=== PATIENT | female | born 1965 | race Caucasian/White ===

== ENCOUNTER 2016-08-08 18:42 | Emergency (ER) | payer MEDICAID ==
[~2016-08-08] VITALS: Ht 175.3 cm; Wt 77.3 kg
[~2016-08-08 18:42] MED LIST: ALBU6.7H IH; CYAN1TAB39 PO; FLUO20CA8 PO; LEVO150T5 PO; METF500T4 PO; OLAN15TA9 PO; RANI150C PO; SALM50DI IH; SOLI5TAB PO
[2016-08-08] MEDS ORDERED: DIPHENHYDRAMINE 50 MG/ML, 1ML ONE (19:21)
[2016-08-08] MEDS ORDERED: PROCHLORPERAZINE 5 MG/ML, 2ML ONE (19:22)
[2016-08-08] MEDS ORDERED: DIPHENHYDRAMINE 50 MG/ML, 1ML IVPush ONE (19:30)
[2016-08-08] MEDS ORDERED: SODIUM CHLORIDE 0.9% 1,000ML IVBOLUS ONE (19:30)
[2016-08-08] MEDS ORDERED: PROCHLORPERAZINE 5 MG/ML, 2ML IVPush ONE (19:30)
[2016-08-08 20:42] VITALS: BP 112/56
== END 2016-08-08 20:44 | disposition home or self-care (01) ==
LOC: ED 20:36
DX: G43.019 Migraine without aura, intractable, without status migrainosus (principal); F17.210 Nicotine dependence, cigarettes, uncomplicated; E78.5 Hyperlipidemia, unspecified; J45.909 Unspecified asthma, uncomplicated
CPT/HCPCS: 70450; 96361; 96374; 96375; 99284; J0780; J1200; J7030

== ENCOUNTER 2016-10-01 19:43 | Emergency (ER) | payer MEDICAID ==
[~2016-10-01] VITALS: Ht 177.8 cm; Wt 74.9 kg
[2016-10-01 20:49] LABS: BLOOD UREA NITROGEN 6 mg/dL (7-18)
[2016-10-01 22:07] LABS: IS PT STATUS REG ER OR PRE ER? YES
[2016-10-01 22:43] VITALS: BP 125/71
== END 2016-10-01 22:45 | disposition home or self-care (01) ==
LOC: ED 22:00
DX: R42 Dizziness and giddiness (principal); R53.1 Weakness; E78.5 Hyperlipidemia, unspecified; F17.210 Nicotine dependence, cigarettes, uncomplicated; E03.9 Hypothyroidism, unspecified; Z98.51 Tubal ligation status
CPT/HCPCS: 36415; 71010; 80048; 82040; 83735; 84436; 84443; 84484; 85025; 93005; 99285

== ENCOUNTER 2017-08-10 10:20 | Emergency (ER) | payer MEDICAID ==
[~2017-08-10] VITALS: Ht 175.3 cm; Wt 74.4 kg
[~2017-08-10 10:20] MED LIST changes: -SOLI5TAB PO; +SOLI5TAB2 PO
[2017-08-10 10:21] VITALS: BP 111/68
[2017-08-10] MEDS ORDERED: PROPARACAINE OPHTH 0.5%, 15ML ONE (11:06)
[2017-08-10] MEDS ORDERED: FLUORESCEIN OPHTHALMIC 1 MG STRIP EACHEYE ONE (11:30)
[2017-08-10] MEDS ORDERED: PROPARACAINE OPHTH 0.5%, 15ML EACHEYE ONE (11:30)
== END 2017-08-10 11:44 | disposition home or self-care (01) ==
LOC: ED 11:34
DX: H00.022 Hordeolum internum right lower eyelid (principal); E78.5 Hyperlipidemia, unspecified; F17.210 Nicotine dependence, cigarettes, uncomplicated; E03.9 Hypothyroidism, unspecified; J45.909 Unspecified asthma, uncomplicated; Z90.49 Acquired absence of other specified parts of digestive tract
CPT/HCPCS: 99283

== ENCOUNTER 2018-04-04 10:47 | Emergency (ER) | payer MEDICAID ==
[~2018-04-04] VITALS: Ht 175.3 cm; Wt 65.0 kg
[~2018-04-04 10:47] MED LIST changes: +METF500T17 PO; -METF500T4 PO
--- NOTE | 2018-04-04 11:30 | NUR ---
PT AMBULATORY TO E FROM [facility] AT THIS TIME WITH STEADY GAIT.NAD NOTED. RESP REGULAR AND UNLABORED. CALL LIGHT IN REACH. FALL PRECAUTIONS IN PLACE. SIDE RAILS UPX2. PATO LUIS AT BEDSIDE FOR EVALUATION.
[2018-04-04] MEDS ORDERED: KETOROLAC 30 MG/1 ML IM ONE (12:00)
[2018-04-04] MEDS ORDERED: KETOROLAC 30 MG/1 ML ONE (12:03)
[2018-04-04 12:07] LABS: RAPID INFLUENZA A Negative (Negative); RAPID INFLUENZA B Negative (Negative)
--- NOTE | 2018-04-04 12:10 | NUR ---
PT MEDICATED NOTED PER ORDER FOR BODY ACHES
--- NOTE | 2018-04-04 12:32 | NUR ---
PATO LUIS AT BEDSIDE FOR RECHECK
[2018-04-04 12:55] VITALS: BP 91/58
== END 2018-04-04 13:04 | disposition home or self-care (01) ==
LOC: ED 11:11
DX: R50.9 Fever, unspecified (principal); B34.9 Viral infection, unspecified; M79.10 Myalgia, unspecified site; J45.909 Unspecified asthma, uncomplicated; E03.9 Hypothyroidism, unspecified; E78.5 Hyperlipidemia, unspecified; F31.9 Bipolar disorder, unspecified; F17.210 Nicotine dependence, cigarettes, uncomplicated
CPT/HCPCS: 87400; 96372; 99283; J1885

== ENCOUNTER 2018-05-23 14:00 | Emergency (ER) | payer MEDICAID ==
[~2018-05-23] VITALS: Ht 175.3 cm; Wt 62.1 kg
--- NOTE | 2018-05-23 14:37 | NUR ---
Pt to room from lobby.
[2018-05-23 14:43] LABS: MEAN CORPUSCULAR HEMOGLOBIN 32.8 pg (27.0-34.8); MEAN CORPUSCULAR HGB CONC 33.6 g/dL (32.4-35.8); MEAN CORPUSCULAR VOLUME 97.4 fL (80-100); MEAN PLATELET VOLUME 10.1 fL (7.4-10.4); PLATELET COUNT 281 x10^3/uL (130-400); RED BLOOD COUNT 4.72 x10^6/uL (3.82-5.3); RED CELL DISTRIBUTION WIDTH 14.4 % (9.6-15.2)
[2018-05-23 14:54] LABS: ALBUMIN 3.9 g/dL (3.4-5.0); ANION GAP 4 mmol/L (5-15); CALCIUM 9.1 mg/dL (8.5-10.1); CHLORIDE 105 mmol/L (98-107); CREATININE 0.77 mg/dL (0.55-1.02)
[2018-05-23 15:04] LABS: ALANINE AMINOTRANSFERASE 21 U/L (12-78); ALKALINE PHOSPHATASE 50 U/L (45-117); BILIRUBIN,TOTAL 0.6 mg/dL (0.2-1.0); FREE T4 (FREE THYROXINE) 1.63 ng/dL (0.76-1.46); TOTAL PROTEIN 7.5 g/dL (6.4-8.2)
--- NOTE | 2018-05-23 15:20 | NUR ---
pT IN AGREEMENT WITH PLAN FOR D/C HOME
[2018-05-23] MEDS ORDERED: LAMO200T3 PO (15:22)
[2018-05-23] MEDS ORDERED: LORA1TAB PO (15:22)
[2018-05-23 15:25] VITALS: BP 112/60
[2018-05-23 15:27] LABS: BASOPHILS # (AUTO) 0.42 x10^3/uL (0-0.1); BASOPHILS % (AUTO) 2 % (0-1); EOSINOPHILS # (AUTO) 0.04 x10^3/uL (0-0.4); EOSINOPHILS % (AUTO) 0 % (1-7); LYMPHOCYTES # (AUTO) 2.16 x10^3/uL (1-3.4); LYMPHOCYTES % (AUTO) 12 % (22-44); MD SCAN; MONOCYTES # (AUTO) 0.98 x10^3/uL (0.2-0.8); MONOCYTES % (AUTO) 5 % (2-9); NEUTROPHILS # (AUTO) 15.17 x10^3/uL (1.8-6.8); NEUTROPHILS % (AUTO) 81 % (42-75)
== END 2018-05-23 15:27 | disposition home or self-care (01) ==
LOC: ED 15:22
DX: J01.90 Acute sinusitis, unspecified (principal); E11.9 Type 2 diabetes mellitus without complications; F17.200 Nicotine dependence, unspecified, uncomplicated
CPT/HCPCS: 36415; 71045; 80053; 84439; 84443; 85025; 93005; 99284

== ENCOUNTER 2018-05-26 14:22 | Emergency (ER) | payer MEDICAID ==
[~2018-05-26 14:22] MED LIST changes: +LAMO200T3 PO; +LORA1TAB PO
[2018-05-26 14:55] VITALS: BP 101/66
== END 2018-05-26 15:35 | disposition home or self-care (01) ==
LOC: ED 15:19
DX: J01.10 Acute frontal sinusitis, unspecified (principal); J20.8 Acute bronchitis due to other specified organisms; E11.9 Type 2 diabetes mellitus without complications; E03.9 Hypothyroidism, unspecified; J45.909 Unspecified asthma, uncomplicated; F31.9 Bipolar disorder, unspecified
CPT/HCPCS: 82962; 99282

== ENCOUNTER 2019-03-19 08:03 | Inpatient (IN) | payer MEDICAID ==
[~2019-03-19] VITALS: Ht 175.3 cm; Wt 55.8 kg
[~2019-03-19 08:03] MED LIST changes: -ALBU6.7H IH; +ALBU6.7H8 IH
[2019-03-19] MEDS ORDERED: ACETAMINOPHEN 500 MG TABLET PO ONE (09:00)
[2019-03-19] MEDS ORDERED: SODIUM CHLORIDE FLUSH 10ML SYR IVF ONE (09:00)
[2019-03-19] MEDS ORDERED: SODIUM CHLORIDE 0.9% 1,000ML IVBOLUS ONE ×2 (09:00→10:30)
[2019-03-19 09:25] LABS: MEAN CORPUSCULAR HEMOGLOBIN 32.8 pg (27.0-34.8); MEAN CORPUSCULAR HGB CONC 33.4 g/dL (32.4-35.8); MEAN CORPUSCULAR VOLUME 98.2 fL (80-100); MEAN PLATELET VOLUME 9.7 fL (7.4-10.4); PLATELET COUNT 199 x10^3/uL (130-400); RED BLOOD COUNT 4.29 x10^6/uL (3.82-5.3); RED CELL DISTRIBUTION WIDTH 14.4 % (9.6-15.2)
[2019-03-19 09:25] LABS: RAPID INFLUENZA A Negative (Negative); RAPID INFLUENZA B Negative (Negative)
[2019-03-19 09:27] LABS: ALBUMIN 3.2 g/dL (3.4-5.0); ANION GAP 5 mmol/L (5-15); CALCIUM 8.5 mg/dL (8.5-10.1); CHLORIDE 109 mmol/L (98-107); CREATININE 0.62 mg/dL (0.55-1.02)
[2019-03-19] MEDS ORDERED: ACETAMINOPHEN 500 MG TABLET ONE (09:29)
[2019-03-19 09:43] LABS: MICROSCOPIC NOT IND
[2019-03-19 09:53] LABS: BASOPHILS # (AUTO) 0.04 x10^3/uL (0-0.1); BASOPHILS % (AUTO) 0 % (0-1); EOSINOPHILS % (AUTO) 0 % (1-7); LYMPHOCYTES # (AUTO) 1.43 x10^3/uL (1-3.4); LYMPHOCYTES % (AUTO) 10 % (22-44); MD SCAN; MONOCYTES # (AUTO) 1.09 x10^3/uL (0.2-0.8); MONOCYTES % (AUTO) 8 % (2-9); NEUTROPHILS # (AUTO) 11.77 x10^3/uL (1.8-6.8); NEUTROPHILS % (AUTO) 82 % (42-75)
[2019-03-19] MEDS ORDERED: CEFTRIAXONE PMX 1GM/50ML 50 ML IV ONE (10:30)
[2019-03-19 10:31] LABS: CULTURE INDICATED? NO
[2019-03-19] MEDS ORDERED: CEFTRIAXONE PMX 1GM/50ML 50 ML ONE (10:44)
[2019-03-19] MEDS ORDERED: METF750T PO (10:53)
[2019-03-19] MEDS ORDERED: LEVO112T4 PO (10:53)
[2019-03-19] MEDS ORDERED: ALEN10TA7 PO (10:55)
[2019-03-19] MEDS ORDERED: SIMV10TA3 PO (10:55)
[2019-03-19] MEDS ORDERED: SODIUM CHLORIDE 0.9% 1,000 ML IV SCH (11:28)
[2019-03-19 11:29] VITALS: BP 96/55
[2019-03-19] MEDS ORDERED: NICOTINE 14MG/24 HR PATCH.TD24 TD SCH (11:30)
[2019-03-19] MEDS ORDERED: IBUPROFEN 600 MG TABLET PO PRN (11:30)
[2019-03-19] MEDS ORDERED: DOCUSATE 100 MG CAPSULE PO PRN (11:30)
[2019-03-19] MEDS ORDERED: ENOXAPARIN 40 MG/0.4 ML SQ SCH (11:30)
[2019-03-19] MEDS ORDERED: DEXTROSE 4 GM TAB.CHEW PO PRN (12:00)
[2019-03-19] MEDS ORDERED: DEXTROSE 50%, 50ML SYRINGE IVPush PRN (12:00)
[2019-03-19] MEDS ORDERED: GLUCAGON 1 MG IM PRN (12:00)
[2019-03-19] MEDS: INSULIN LISPRO 100 UNITS/ML, PEN SQ-INSULIN SCH ×3 (12:00→20:34)
[2019-03-19] MEDS ORDERED: ALBUTEROL SULFATE 2.5 MG/3 ML NPPB PRN (12:30)
[2019-03-19] MEDS: SODIUM CHLORIDE FLUSH 10ML SYR IVF SCH ×2 (12:35→20:31)
[2019-03-19 13:47] VITALS: BP 101/64
[2019-03-19] MEDS: ACETAMINOPHEN 325 MG TABLET PO PRN ×2 (16:25→20:35)
[2019-03-19 19:42] VITALS: BP 106/64
[2019-03-19] MEDS ORDERED: OLANZAPINE 5 MG TABLET PO SCH (21:00)
[2019-03-19] MEDS ORDERED: SIMVASTATIN 10 MG TABLET PO SCH (21:00)
[2019-03-20 00:51] VITALS: BP 101/57
[2019-03-20 05:43] LABS: ANION GAP 6 mmol/L (5-15); CALCIUM 8.6 mg/dL (8.5-10.1); CHLORIDE 114 mmol/L (98-107); CREATININE 0.44 mg/dL (0.55-1.02)
[2019-03-20 05:46] LABS: BASOPHILS # (AUTO) 0.03 x10^3/uL (0-0.1); BASOPHILS % (AUTO) 0 % (0-1); EOSINOPHILS # (AUTO) 0.14 x10^3/uL (0-0.4); EOSINOPHILS % (AUTO) 1 % (1-7); LYMPHOCYTES # (AUTO) 2.29 x10^3/uL (1-3.4); LYMPHOCYTES % (AUTO) 22 % (22-44); MD NO; MEAN CORPUSCULAR HEMOGLOBIN 32.6 pg (27.0-34.8); MEAN CORPUSCULAR HGB CONC 32.9 g/dL (32.4-35.8); MEAN CORPUSCULAR VOLUME 98.9 fL (80-100); MEAN PLATELET VOLUME 10.4 fL (7.4-10.4); MONOCYTES # (AUTO) 1.14 x10^3/uL (0.2-0.8); MONOCYTES % (AUTO) 11 % (2-9); NEUTROPHILS # (AUTO) 7.07 x10^3/uL (1.8-6.8); NEUTROPHILS % (AUTO) 66 % (42-75); PLATELET COUNT 199 x10^3/uL (130-400); RED BLOOD COUNT 4.07 x10^6/uL (3.82-5.3); RED CELL DISTRIBUTION WIDTH 14.4 % (9.6-15.2)
[2019-03-20 06:47] VITALS: BP 98/60
[2019-03-20] MEDS: INSULIN LISPRO 100 UNITS/ML, PEN SQ-INSULIN SCH ×2 (07:00→11:00)
[2019-03-20] MEDS: ACETAMINOPHEN 325 MG TABLET PO PRN ×2 (08:27→12:27)
[2019-03-20] MEDS ORDERED: ALENDRONATE 10 MG TABLET PO SCH (09:00)
[2019-03-20] MEDS ORDERED: LEVOTHYROXINE 112 MCG TABLET PO SCH (09:00)
[2019-03-20] MEDS ORDERED: CEFTRIAXONE PMX 1GM/50ML 50 ML IV SCH (09:00)
[2019-03-20] MEDS ORDERED: OLANZAPINE 5 MG TABLET PO SCH (09:00)
[2019-03-20] MEDS ORDERED: METFORMIN HCL 750 MG PO SCH (09:00)
[2019-03-20] MEDS: SODIUM CHLORIDE FLUSH 10ML SYR IVF SCH (09:00)
[2019-03-20] MEDS ORDERED: LEVO750T6 PO (11:24)
[2019-03-20] MEDS ORDERED: SODIUM CHLORIDE 0.9% 1,000 ML IV SCH (11:28)
== END 2019-03-20 13:15 | disposition home or self-care (01) | DRG 720 ==
LOC: ED 09:46 → 4NE 11:23 → ED 11:25 → 4NE 11:25 → DCLOUNGE 03-20 13:11
PROVIDERS: ADMIT Family Medicine; ATTEND Family Medicine
DX: A41.9 Sepsis, unspecified organism (principal); J15.9 Unspecified bacterial pneumonia; J44.0 Chronic obstructive pulmonary disease with (acute) lower respiratory infection; R09.02 Hypoxemia; F17.210 Nicotine dependence, cigarettes, uncomplicated; F31.9 Bipolar disorder, unspecified; M41.9 Scoliosis, unspecified; E11.9 Type 2 diabetes mellitus without complications; E03.9 Hypothyroidism, unspecified; K21.9 Gastro-esophageal reflux disease without esophagitis; E78.5 Hyperlipidemia, unspecified; Z87.442 Personal history of urinary calculi; Z59.0 Homelessness; Z87.440 Personal history of urinary (tract) infections; Z88.1 Allergy status to other antibiotic agents; Z79.84 Long term (current) use of oral hypoglycemic drugs; Z79.899 Other long term (current) drug therapy; Z88.8 Allergy status to other drugs, medicaments and biological substances; Z91.5 Personal history of self-harm
CPT/HCPCS: 36415; 71046; 80048; 81003; 82040; 82962; 83036; 83605; 84145; 85025; 87040; 87400; 99285; G0378; J0696; J1650; J7030